=== PATIENT | male | born 1995 | race Caucasian/White ===

== ENCOUNTER 2023-02-22 17:18 | Emergency (ER) | payer BC, OTHER ==
[2023-02-22 17:27] VITALS: BP 96/66; PULSE 107; RESP 18; TEMP 97.6; BMI 15.8
[2023-02-22] MEDS ORDERED: LACTATED RINGERS SOLUTION 1000 ML INFUS.BAG IV ONE ×2 (18:15)
[2023-02-22] MEDS ORDERED: ACETAMINOPHEN 1000 MG/100 ML BAG IVPB ONE (18:20)
[2023-02-22] MEDS ORDERED: ACETAMINOPHEN INJECTION 100 ML IVPB ONE (18:27)
[2023-02-22 18:44] LABS: BASO % 0.8 % (0-2.0); EOS % 1.5 % (0-4.5); HEMATOCRIT 47.1 % (35.4-49); LYMPH % 35.3 % (8-40); MCH 29.6 pg (25.7-33.7); MCHC 33.9 g/dl (32.0-35.9); MEAN CELL VOLUME 87.3 fl (80-96); MEAN PLT VOLUME 8.4 fl (7.5-11.1); MONO % 7.7 % (3.8-10.2); NEUT % 54.7 % (42.8-82.8); PLATELET COUNT 245 10^3/uL (134-434); RDW 13.8 % (11.9-15.9); WHITE BLOOD COUNT 4.6 K/mm3 (4.0-10.0)
[2023-02-22 18:45] LABS: URINE APPEARANCE CLEAR; URINE BILIRUBIN NEGATIVE (NEGATIVE); URINE COLOR YELLOW; URINE GLUCOSE (UA) NEGATIVE (NEGATIVE); URINE KETONE TRACE (NEGATIVE); URINE LEUK ESTERASE NEGATIVE (NEGATIVE); URINE NITRITE NEGATIVE (NEGATIVE); URINE PROTEIN NEGATIVE (NEGATIVE); URINE UROBILINOGEN 0.2 mg/dL (0.2-1.0)
[2023-02-22 19:01] LABS: CALCIUM 9.9 mg/dL (8.5-10.1)
[2023-02-22 19:02] LABS: ALBUMIN 4.5 g/dl (3.4-5.0); BLOOD UREA NITROGEN 12.9 mg/dL (7-18)
[2023-02-22 19:05] LABS: CREATININE 0.8 mg/dL (0.55-1.3)
[2023-02-22 19:06] LABS: BILIRUBIN,TOTAL 0.5 mg/dL (0.2-1); TOT PROT 7.9 g/dl (6.4-8.2)
[2023-02-22] MEDS ORDERED: METHOCARBAMOL 500 MG TABLET PO ONE (19:07)
[2023-02-22] MEDS ORDERED: METHOCARBAMOL 500 MG TABLET ONE (20:15)
== END 2023-02-23 00:05 | disposition home or self-care (01) ==
LOC: JER 17:18
DX: R06.02 Shortness of breath (principal); M54.6 Pain in thoracic spine; R91.1 Solitary pulmonary nodule; Z20.822 Contact with and (suspected) exposure to COVID-19
CPT/HCPCS: 0241U-QW; 36415; 71046-TC-FY; 71275-TC; 74174-TC; 76705-TC; 76775-TC; 80053; 81003; 83690; 85025; 87086; 93005; 93010; 99285-25; Q9967

== ENCOUNTER 2023-02-26 10:09 | Emergency (ER) | payer OTHER ==
[2023-02-26 10:18] VITALS: BP 104/65; PULSE 96; RESP 18; TEMP 97.5; BMI 15.4
[2023-02-26] MEDS ORDERED: KETOROLAC TROMETHAMINE 30 MG/1 ML VIAL IM ONE (11:46)
[2023-02-26] MEDS ORDERED: LIDOCAINE 5% TOPICAL PATCH TP ONE (11:46)
[2023-02-26] MEDS ORDERED: ALBUTEROL SO4 2.5/IPRATROPIUM 0.5 INH SOL 3 ML VIAL.NEB. NEB ONE ×2 (11:46→11:48)
[2023-02-26] MEDS ORDERED: LIDOCAINE 5% TOPICAL PATCH ONE (11:48)
[2023-02-26] MEDS ORDERED: KETOROLAC TROMETHAMINE 30 MG/1 ML VIAL ONE (11:48)
[2023-02-26] MEDS ORDERED: LIDOCAINE PATCH REMOVAL MC ONE (22:00)
== END 2023-02-26 13:42 | disposition home or self-care (01) ==
LOC: JERFT 10:09
PROC: 3E0233Z Introduction of Anti-inflammatory into Muscle, Percutaneous Approach (ICD-10-PCS; principal; 2023-02-26)
PROC: 3E0F7GC Introduction of Other Therapeutic Substance into Respiratory Tract, Via Natural or Artificial Opening (ICD-10-PCS; 2023-02-26)
DX: M54.2 Cervicalgia (principal); R07.0 Pain in throat
CPT/HCPCS: 71046-TC-FY; 87070; 99284-25